=== PATIENT | female | born 1950 | race Caucasian/White ===

== ENCOUNTER 2020-11-07 15:22 | Emergency (ER) | payer MEDICARE, SELFPAY ==
--- NOTE | 2020-11-07 15:28 | ED.EAR ---
HPI - Ear Problem General Chief complaint: Ear Stated complaint: ear pain Time Seen by Provider: 11/07/20 15:29 Source: patient and RN notes reviewed History of Present Illness HPI Narrative: Patient is a 70-year-old female who presents the urgent care with complaints of ringing to the left ear. Patient states that she had oral thrush so bad that her dentist at [facility] pulled 9 teeth on Tuesday . Patient states that they treated her for the oral thrush with nystatin and she has been wiping out the inside of her mouth frequently. Patient states that it seems to have gotten somewhat better but now she is having the ringing in the ear. Patient states she is also had some pain to the lower dentition after having the teeth pulled. Patient has been taking [place] for her pain. Denies of any fevers. No other acute complaints. No acute distress noted. Patient under the plan of care. Some parts of this dictation were generated by voice recognition software and may contain typographical and/or grammatical inaccuracies. Related Data Home Medications Medication Instructions Recorded Confirmed fluconazole 100 mg PO DAILY 11/07/20 11/07/20 hydrocodone-acetaminophen 7.5 tablet PO BID PRN 11/07/20 11/07/20 lisinopril 20 mg PO DAILY 11/07/20 11/07/20 nystatin 100,000 ml PO QID 11/07/20 11/07/20 Allergies Allergy/AdvReac Type Severity Reaction Status Date / Time No Known Allergies Allergy Verified 11/07/20 15:41 Review of Systems Review of Systems: Narrative: CONSTITUTIONAL: Denies fever, chills, or sweats. EYES: Denies visual changes, redness, or discharge. ENT: Denies rhinorrhea, congestion, sore throat. reports of left tinnitus and oral thrush CARDIOVASCULAR: Denies chest pain, palpitations, or edema. RESPIRATORY: Denies cough or dyspnea. GASTROINTESTINAL: Denies abdominal pain, nausea, vomiting, or diarrhea. GENITOURINARY: Denies dysuria or hematuria. SKIN: Denies rash or itching. MUSCULOSKELETAL: Denies back pain, joint pain, or myalgia. NEUROLOGIC: Denies headache, numbness, or weakness. All other systems reviewed are negative, except as documented in HPI. PMFSH Comments At the time of my signature, I reviewed and agree with the nursing past medical, surgical, social, and family history. There is no relevant family history pertinent to the patient complaint. Exam Narrative: Exam Narrative: GENERAL: This is a well-nourished, well-developed patient, in no apparent distress. HEAD: normocephalic, atraumatic. EYES: PERRL. Sclera clear/white. Vision is grossly intact. EARS: External ears normal, auditory canals clear and without drainage, mild fluid noted behind left TM without otitis, TMs normal without perforation. Hearing grossly intact. NOSE: External nose normal with no obvious nasal discharge, nares without redness, no rhinorrhea. THROAT: Mucous membranes moist, posterior pharynx clear. Mild erythema and plaque-like lesions to the tongue (patient reports of improvement) NECK: Neck supple CARDIOVASCULAR: Regular rate and rhythm without murmurs, gallops, or rubs. RESPIRATORY: Clear to auscultation. Breath sounds equal bilaterally. No wheezes, rales, or rhonchi. SKIN: warm, intact with no suspicious lesions or rash, good texture and turgor. NEURO: awake, alert, and oriented to person, place and time. There were no obvious focal neurologic abnormalities. EXTREMITIES: No clubbing, cyanosis, or edema. Course Vital Signs Vital signs: Vital Signs Temperature 97.9 F 11/07/20 15:31 Pulse Rate 86 11/07/20 15:31 Respiratory Rate 18 11/07/20 15:31 Blood Pressure 145/79 H 11/07/20 15:31 Pulse Oximetry 99 11/07/20 15:31 Temperature 97.9 F 11/07/20 15:31 Pulse Rate 86 11/07/20 15:31 Respiratory Rate 18 11/07/20 15:31 Blood Pressure 145/79 H 11/07/20 15:31 Pulse Oximetry 99 11/07/20 15:31 Reviewed-patient is informed that they may have pre-hypertension or hypertension based on a blood pressure re
[2020-11-07 15:31] VITALS: BP 145/79; PULSE 86; RESP 18; TEMP 36.6; O2SAT 99
== END 2020-11-07 15:54 | disposition home or self-care (01) ==
PROVIDERS: Emergency Provider Nurse Practitioner Family; PCP Internal Medicine
DX: H93.12 Tinnitus, left ear (principal); I10 Essential (primary) hypertension
CPT/HCPCS: 99211; G0463